=== PATIENT | female | born 1985 | race African-American/Black ===

== ENCOUNTER 2018-11-10 22:56 | Emergency (ER) | payer MEDICARE, OTHER ==
[~2018-11-10] VITALS: Ht 165.1 cm; Wt 95.5 kg
[~2018-11-10 22:56] MED LIST: ALBU8HFA4 IH; motrin
[2018-11-10] MEDS ORDERED: ALPR0.25 PO (23:26)
[2018-11-10] MEDS ORDERED: ACET1TAB12 PO (23:26)
[2018-11-10] MEDS ORDERED: IBUP-2076 PO (23:26)
[2018-11-11] MEDS ORDERED: CYCLOBENZAPRINE HCL 10 MG TABLET PO ONE (00:30)
[2018-11-11] MEDS ORDERED: KETOROLAC TROMETHAMINE 30 MG/ML VIAL IM ONE (00:30)
[2018-11-11 01:23] VITALS: BP 131/74
== END 2018-11-11 01:38 | disposition home or self-care (01) ==
LOC: EMS 22:57
DX: S13.9XXA Sprain of joints and ligaments of unspecified parts of neck, initial encounter (principal); J45.909 Unspecified asthma, uncomplicated; I10 Essential (primary) hypertension; F17.210 Nicotine dependence, cigarettes, uncomplicated; Z98.51 Tubal ligation status; V49.9XXA Car occupant (driver) (passenger) injured in unspecified traffic accident, initial encounter; Y93.89 Activity, other specified; Y92.89 Other specified places as the place of occurrence of the external cause; Y99.8 Other external cause status
CPT/HCPCS: 96372; 99283; J1885